=== PATIENT | female | born 1980 | race Caucasian/White ===

== ENCOUNTER → 2016-12-02 | Outpatient (CLI) | payer BC ==
[~2016-12-02] MED LIST: CLEOCIN HC150 MG/CAP PO; IBU800 M1 PO; LORTAB 5/500 501 TAB; MIRENA52 MG IU; NORCO 325 MG-51 TAB PO; PERCOCET 325 MG1 TA2 PO; PRENATAL PO; ZOLOFT 50MG50 MG PO
== END ==
LOC: BHSO 08:02
DX: F33.42 Major depressive disorder, recurrent, in full remission (principal)

== ENCOUNTER 2017-07-11 09:23 | Inpatient (IN) | payer BC ==
[2017-07-11] VITALS (36 sets, daily range): BP systolic 119–171; BP diastolic 60–101; PULSE 56–110; TEMP 97–98.3
[~2017-07-11] VITALS: Ht 170.2 cm; Wt 100.0 kg
[~2017-07-11 09:23] MED LIST changes: -IBU800 M1 PO; -PERCOCET 325 MG1 TA2 PO; -PRENATAL PO; -ZOLOFT 50MG50 MG PO
[2017-07-11] MEDS ORDERED: ZOLOFT 50MG50 MG PO (10:01)
[2017-07-11] MEDS ORDERED: PRENATAL PO (10:01)
--- NOTE | 2017-07-11 10:11 | NUR ---
1011-NOTIFIED DR. JOSEPH OF PATIENTS ARRIVAL TO UNIT, SEE PHYSICIAN NOTIFICATION. 1040-IV TO LEFT HAND, BLOOD COLLECTED AND SENT TO LAB. FLUSHED SITE, INT. 1050-UP TO AMBULATE UNIT PER MD ORDERS. 1115-DR. JOSEPH ON UNIT. DISCUSSES PLAN OF CARE WITH PATIENT. PATIENT VERBALIZES UNDERSTANDING OF NEED TO AUGMENT LABOR WITH PITOCIN IF NOT DMITRY BY 1145. SITTING IN ROOM ON BB. 1129-PLACED PATIENT BACK ON EFM. DIFFICUTLY TRACING FHR DUE TO MATERNAL POSITIONING ON BB. 1145-PATIENT STANDING AT BEDSIDE SWAYING BACK AND FORT. PITOCIN STARTED PER MD ORDERS AT 2 MU/MIN. WILL CONTINUE TO MONITOR.
--- NOTE | 2017-07-11 10:50 | NUR ---
[id number] OFF EFM TO AMBULATE UNIT
--- NOTE | 2017-07-11 11:45 | NUR ---
[id number] PATIENT ON BB. DIFFICUTLY TRACING FHR DUE TO MATERNAL POSITIONING. RN AT BEDSIDE FREQUENTLY READJUSTING EFM.
[2017-07-11 11:49] LABS: BASO % 0.3 % (0.0-2.0); EOS # 0.1 (0.0-0.7); EOS % 1.1 % (0-4.0); GRAN # 8.7 (1.4-6.5); GRAN % 75.8 % (42.2-75.2); LYMPH # 1.8 (1.2-3.4); LYMPH % 15.9 % (20.0-51.0); MEAN CELL VOLUME 85 fl (80.0-100.0); MEAN CORPUSCULAR HGB CONC 35 g/dl (33.0-37.0); MONO # 0.7 (0.1-0.6); MONO % 5.8 % (1.7-9.3); PLATELET COUNT 165 K/mm3 (130-400); RED BLOOD COUNT 3.43 M/mm3 (4.10-5.30); REDCELL DISTRIBUTION WIDTH-CV 13.5 % (11.5-14.5)
[2017-07-11 11:51] LABS: HEMATOCRIT 29.1 % (37.0-47.0); HEMOGLOBIN 10.2 g/dl (12.5-16.0); MEAN CORPUSCULAR HEMOGLOBIN 30 pg (27.0-31.0)
--- NOTE | 2017-07-11 13:00 | NUR ---
1300-ATTEMPTED TO PLACE PATIENT ON DEBORAH MONITOR. UNABLE TO GET MONITOR TO TRACE. RETURNED TO [facility]. WILL CONTINUE TO MONITOR.
--- NOTE | 2017-07-11 13:35 | NUR ---
DIFFICUTLY TRACING FHR DUE TO MATERNAL POSITIONING. RN FREQUENTLY READJUSTING EFM.
--- NOTE | 2017-07-11 14:00 | NUR ---
[id number] PATIENT FREQUENTLY CHANGING POSITIONS DURING CONTRACTIONS. DIFFICULTY TRACING CONTRACTION PATTERN AND FHR. CURRENTLY ON HANDS AND KNEES PER COMFORT.
--- NOTE | 2017-07-11 14:30 | NUR ---
PATIENT SQUATING AT BEDSIDE FOR POSITION OF COMFORT. DIFFICUTLY TRACING CONTRACTIONS AND FHR. RN FREQUENTLY AT BEDSIDE READJUSTING MONITORS.
--- NOTE | 2017-07-11 15:30 | NUR ---
PATIENT HAS BEEN UP AND DOWN FROM STANDING TO SITTING. DIFFICULTY KEEPING A TRACING VIA EFM. RN FREQUENTLY READJUSTING EFM. UP TO BATHROOM AT THIS TIME.
--- NOTE | 2017-07-11 15:35 | NUR ---
1535-PATIENT RETURNED TO BED [facility]. RN FREQUENTLY READJUSTING EFM.
--- NOTE | 2017-07-11 15:55 | NUR ---
1555-PATIENT REQUESTING EPIDURAL. SVE 4-5/80/-[address] JOSEPH. NOTIFIED SHAMIKA FALCON. 1600-SHAMIKA FALCON ON UNIT. TO ROOM, PATIENT SITTING UP ON BEDSIDE. PITOCIN TURNED OFF DUE TO INABILITY TO TRACE FHR DURING EPIDURAL PLACEMENT. PATIENT DMITRY EVERY 2-3 MIN. COACHING THROUGH CONTRACTIONS. BP ELEVATED 171/79 DURING EPIDURAL PLACEMENT. BREATHING THROUGH CONTRACTIONS. 1614-TEST DOSE ADMINISTERED BY Janelle NUNEZ CRNA. SEE ANESTHESIA RECORD. 1623-PATIENT REPSITIONED WR. PIT RESUMED AT 8MU/MIN. UPDATED ON SAFETY AND PLAN OF CARE. WILL CONTINUE TO MONITOR
--- NOTE | 2017-07-11 16:45 | NUR ---
2655-LAB IN ROOM, BP CUFF OFF. PATIENT MOVING IN BED TO HELP LAB OBTAIN BLOOD DRAW. MIKY MOVED, RN READJUSTED.
--- NOTE | 2017-07-11 17:00 | NUR ---
RN AT BEDSIDE REPSITIONED FROM RL TO LL.
[2017-07-11 17:20] LABS: ALBUMIN 3.4 gm/dL (3.5-5.0); BILIRUBIN,TOTAL 0.4 mg/dL (0.0-1.0); CALCIUM 8.8 mg/dL (8.4-10.2); CREATININE, serum 0.51 mg/dL (0.52-1.25); POTASSIUM 3.3 mmol/L (3.4-5.0); TOTAL PROTEIN 6.4 gm/dL (6.4-8.2)
[2017-07-11 18:06] LABS: COLLECTION METHOD CATHETER
--- NOTE | 2017-07-11 18:10 | NUR ---
PATIENT CONTINUES TO MOVE FROM SITTING TO KNEE CHEST DURING CONTRACTIONS. RN FREQUENTLY READJSUTING EFM.
--- NOTE | 2017-07-11 18:10 | NUR ---
1809-DR. JOSEPH ON UNIT. REVIEWS FHR MONITOR. SVE BY AL/100/0. 1824-BEDSIDE SHIFT REPORT TO [place]. DR. JOSEPH REMAINS ON UNIT. SCALP ELECTRODE PLACED BY . REPSITIONED PATIENT RL WITH PEANUT BALL IN PLACE.
--- NOTE | 2017-07-11 18:15 | NUR ---
Report received from Carolina NEELY. Dr. John here viewing strip.
[2017-07-11 18:19] LABS: MUCOUS Present /lpf; PH 6 (5-8); SQUAMOUS EPITHELIAL 0-2 /hpf; URINE APPEARANCE Hazy; URINE BACTERIA None Seen /hpf; URINE BILIRUBIN Negative (NEGATIVE); URINE BLOOD 1+ (NEGATIVE); URINE COLOR Yellow; URINE GLUCOSE Negative (NEGATIVE); URINE KETONE 2+ (NEGATIVE); URINE LEUKOCYTE ESTERASE Negative (NEGATIVE); URINE NITRATE Negative (NEGATIVE); URINE PROTEIN(semi-quant) 2+ (NEGATIVE); URINE UROBILINOGEN Negative (NEGATIVE)
--- NOTE | 2017-07-11 18:45 | NUR ---
1845: Dr. John here at bedside. SVE per physician complete. 1849: Dr John begins to push with patient with each contraction. 1857: Anaya catheter removed. 1934: Patient prepared for delivery and bed taken apart. 1945: Spontaneous delivery of head followed immediately by body. Infant placed on patients abdomen and father cuts cord. Dr. John begins to repair laceration. 1955: Spontaneous delivery of placenta which included a 100cc clot per physician report. Pitocin started per protocol. Fundal massage given. 2000: 600mcg Cytotec given via rectal by Dr. John. Pericare performed and bed put back together. Ice pack placed to perineum. Will continue to monitor
--- NOTE | 2017-07-11 19:05 | NUR ---
Oxygen on 10L via mask intermittenly between pushes per Dr. Margarita del rosario.
--- NOTE | 2017-07-11 22:15 | NUR ---
2215: Epidural catheter removed and patient tolerated well. Patient up to bathroom with assist, pericare given, and new gown on. New pad placed, ice pack placed to perineum, and tucks placed. Patient voids 150cc. 2230: Patient ambulatory to room 219 and will continue to monitor.
[2017-07-12 03:45] VITALS: BP 136/85; PULSE 72; TEMP 98
[2017-07-12 08:56] VITALS: BP 157/85; PULSE 68; TEMP 97.6
--- NOTE | 2017-07-12 09:56 | NUR ---
Initial visit; Nurse with family, [employer] left card of congratulations and information regarding the availability of spiritual care at [facility].
[2017-07-12 09:57] LABS: BASO # 0.1 (0.0-0.2); BASO % 0.4 % (0.0-2.0); EOS # 0.1 (0.0-0.7); EOS % 0.4 % (0-4.0); GRAN # 10.3 (1.4-6.5); GRAN % 77.6 % (42.2-75.2); LYMPH # 1.9 (1.2-3.4); LYMPH % 14.3 % (20.0-51.0); MEAN CELL VOLUME 86 fl (80.0-100.0); MEAN CORPUSCULAR HGB CONC 34 g/dl (33.0-37.0); MEAN PLATELET VOLUME 11.8 fl (7.4-10.4); MONO # 0.9 (0.1-0.6); MONO % 6.5 % (1.7-9.3); PLATELET COUNT 152 K/mm3 (130-400); RED BLOOD COUNT 3.22 M/mm3 (4.10-5.30); REDCELL DISTRIBUTION WIDTH-CV 13.6 % (11.5-14.5)
[2017-07-12 10:02] LABS: HEMATOCRIT 27.7 % (37.0-47.0); HEMOGLOBIN 9.5 g/dl (12.5-16.0); MEAN CORPUSCULAR HEMOGLOBIN 30 pg (27.0-31.0)
[2017-07-12 16:37] VITALS: BP 144/80; PULSE 62; TEMP 97.6
--- NOTE | 2017-07-12 18:35 | NUR ---
Report recieved. Finishing . Updated whiteboard and reviewed POC. Denied questions or concerns.
[2017-07-12 19:00] VITALS: BP 136/78; PULSE 66; TEMP 98.8
[2017-07-13 08:30] VITALS: BP 134/105; PULSE 64; TEMP 98.1
[2017-07-13 09:01] VITALS: BP 151/93; PULSE 62
[2017-07-13] MEDS ORDERED: IBU800 M1 PO (09:03)
[2017-07-13] MEDS ORDERED: PERCOCET 325 MG1 TA2 PO (09:03)
[2017-07-13 10:45] VITALS: BP 142/86; PULSE 64
[2017-07-13 13:00] VITALS: BP 165/88; PULSE 63
--- NOTE | 2017-07-13 14:25 | NUR ---
Patient ambulatory off unit to private vehicle with spouse.
== END 2017-07-13 14:25 | disposition home or self-care (01) | DRG 774 ==
LOC: LDRO 09:23 → LDR 10:23 → OB 10:23 → LDRO 07-20 09:07
PROVIDERS: ADMIT Student in an Organized Health Care Education/Training Program
PROC: 10E0XZZ Delivery of Products of Conception, External Approach (ICD-10-PCS; principal; 2017-07-11)
PROC: 0KQM0ZZ Repair Perineum Muscle, Open Approach (ICD-10-PCS; 2017-07-11)
DX: O34.211 Maternal care for low transverse scar from previous cesarean delivery (principal); O72.1 Other immediate postpartum hemorrhage; N85.8 Other specified noninflammatory disorders of uterus; O70.1 Second degree perineal laceration during delivery; O34.13 Maternal care for benign tumor of corpus uteri, third trimester; D25.9 Leiomyoma of uterus, unspecified; Z3A.38 38 weeks gestation of pregnancy; Z37.0 Single live birth
CPT/HCPCS: J2590; J7120

== ENCOUNTER → 2017-07-18 | Outpatient (CLI) | payer BC ==
[~2017-07-18] MED LIST changes: +IBU800 M1 PO; +PERCOCET 325 MG1 TA2 PO; +PRENATAL PO; +ZOLOFT 50MG50 MG PO
== END ==
LOC: OLC 10:34
DX: Z39.1 Encounter for care and examination of lactating mother (principal); Z71.89 Other specified counseling

== ENCOUNTER → 2017-07-25 | Outpatient (CLI) | payer BC | LOC: OLC 10:36 | DX: Z39.1 Encounter for care and examination of lactating mother (principal); Z71.89 Other specified counseling ==

== ENCOUNTER 2018-07-26 11:30 | Outpatient (RCR) | payer BC | END 2018-08-10 09:30 | disposition home or self-care (01) | LOC: WSPT 11:30 | DX: M25.561 Pain in right knee (principal) ==

== ENCOUNTER 2019-01-25 09:51 | Emergency (ER) | payer BC ==
[~2019-01-25] VITALS: Ht 167.6 cm; Wt 78.6 kg
[2019-01-25 09:58] VITALS: TEMP 98.7
[2019-01-25] MEDS ORDERED: MIRENA52 MG IY (10:23)
[2019-01-25] MEDS ORDERED: NORCO 325 MG-51 TAB PO (11:15)
[2019-01-25] MEDS ORDERED: CRUTCHES MC (12:54)
[2019-01-25 12:57] VITALS: BP 132/92; PULSE 80
== END 2019-01-25 12:58 | disposition home or self-care (01) ==
LOC: COL.ER 09:51
DX: S92.421A Displaced fracture of distal phalanx of right great toe, initial encounter for closed fracture (principal); S92.531A Displaced fracture of distal phalanx of right lesser toe(s), initial encounter for closed fracture; Z88.0 Allergy status to penicillin; Z88.6 Allergy status to analgesic agent; W20.8XXA Other cause of strike by thrown, projected or falling object, initial encounter

== ENCOUNTER 2019-02-14 07:57 | Outpatient (RCR) | payer OTHER ==
[~2019-02-14 07:57] MED LIST changes: +CRUTCHES MC; +MIRENA52 MG IY
== END 2019-03-26 15:33 | disposition home or self-care (01) ==
LOC: WSOH 07:57
DX: S92.491A Other fracture of right great toe, initial encounter for closed fracture (principal); S92.591B Other fracture of right lesser toe(s), initial encounter for open fracture; S90.211A Contusion of right great toe with damage to nail, initial encounter; S90.121A Contusion of right lesser toe(s) without damage to nail, initial encounter; S91.211A Laceration without foreign body of right great toe with damage to nail, initial encounter; W20.8XXA Other cause of strike by thrown, projected or falling object, initial encounter; Y92.89 Other specified places as the place of occurrence of the external cause; Y93.89 Activity, other specified; Y99.0 Civilian activity done for income or pay

== ENCOUNTER → 2021-04-13 | Outpatient (CLI) | payer BC | LOC: MC.RAD 11:30 | DX: Z12.31 Encounter for screening mammogram for malignant neoplasm of breast (principal) ==